=== PATIENT | female | born 2005 | race African-American/Black ===

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

== ENCOUNTER 2024-02-17 12:34 | Emergency (ER) | payer MEDICAID, OTHER ==
[~2024-02-17] VITALS: Ht 170.2 cm; Wt 80.0 kg
[2024-02-17 12:50] VITALS: TEMP 98
[2024-02-17 12:54] VITALS: BP 131/84
[2024-02-17] MEDS ORDERED: CLIN1CAP70 PO (13:51)
[2024-02-17] MEDS ORDERED: IBUP-1456 PO (13:51)
[2024-02-17 13:57] VITALS: PULSE 89; RESP 16; O2SAT 99
== END 2024-02-17 14:01 | disposition home or self-care (01) ==
LOC: ER 12:34
DX: K04.7 Periapical abscess without sinus (principal); Z79.899 Other long term (current) drug therapy